=== PATIENT | female | born 1965 | race Caucasian/White ===

== ENCOUNTER → 2020-06-28 | Outpatient (CLI) | payer BC ==
[~2020-06-28] VITALS: Ht 157.5 cm; Wt 106.7 kg
[~2020-06-28] MED LIST: METO-352 PO; OMEP-401 PO; SPIR100T4 PO
== END | disposition home or self-care (01) ==
LOC: PREOP 05:39
PROVIDERS: ATTEND Surgery
DX: Z01.818 Encounter for other preprocedural examination (principal)

== ENCOUNTER 2020-07-05 10:57 | Day surgery (SDC) | payer BC ==
[2020-07-05] VITALS (7 sets, daily range): BP systolic 102–149; BP diastolic 57–94
[~2020-07-05] VITALS: Ht 157.5 cm; Wt 106.7 kg
[2020-07-05] MEDS ORDERED: LACTATED RINGERS 1,000 ML IV STA (11:25)
[2020-07-05] MEDS ORDERED: PROPOFOL INJECTION 50 ML IV ONE (12:05)
[2020-07-05] MEDS ORDERED: MIDAZOLAM 2 MG/2 ML (VERSED) VIAL ONE (12:18)
--- NOTE | 2020-07-05 12:29 | Progress Note-Pre Operative ---
Pre-Operative Progress Note H&P Reviewed The H&P was reviewed, patient examined and no changes noted. Time Seen by Provider: 12:06 Date H&P Reviewed: July 05, 2020 Time H&P Reviewed: 12:06 Pre-Operative Diagnosis: screening colon JOHNSON GOODSON DO July 05, 2020 12:29
--- NOTE | 2020-07-05 12:52 | Progress Note-Post Operative ---
Post-Operative Progess Note Surgeon (s)/Cardiopulmonary Specialist (s) Surgeon JOHNSON GOODSON DO Cardiopulmonary Specialist: none Pre-Operative Diagnosis screening colon Post-Operative Diagnosis Diverticula int hemorrhoids Procedure & Operative Findings Date of Procedure 07/05/20 Procedure Performed/Findings After informed consent was obtained, the patient was brought to the endoscopy suite and placed in the bed in the left lateral decubitus position. She was administered IV sedation by the [facility], who then monitored her vitals the entire time, heart rate, blood pressure and pulse ox and the scope was inserted, started the colonoscopy. Pushed all the way into about 150 cm to get all the way to cecum, took a picture of the appendiceal orifice, noted the ileocecal valve and then slowly withdrew the scope, insufflating to look circumferentially at the sylvester starting in the cecum, up the ascending colon to the hepatic flexure, then down the transverse colon to the splenic flexure, into the descending colon. In the descending colon and in the sigmoid, saw some diverticula and took pictures of them. Down the sigmoid and finally into the rectum, retroflexed in the rectal vault, saw some minimal internal hemorrhoids and took a picture of this. The patient tolerated the procedure and she recovered in the endoscopy suite. Anesthesia Type IV sedation by [facility] Estimated Blood Loss Estimated blood loss (mL): none Specimens/Packing Specimens Removed none JOHNSON GOODSON DO July 05, 2020 12:52
--- NOTE | 2020-07-05 12:53 | Endoscopy Discharge Instruct ---
Endo Procedure/Findings Findings 1.: Diverticulosis 2.: Internal Hemorrhoids Discharge Instructions - Activity: You might feel a little sleepy until tomorrow. This is due to the medicine you received to relax you. Until tomorrow, you should: NOT drive a car, operate machinery or power tools. NOT drink any alcoholic beverages. NOT make any important decisions or sign importortant papers. Do not return to work until tomorrow, unless otherwise instructed. Resume previous activities tomorrow. Diet: Start by taking liquids. If you tolerate liquids, advance to solid food. 1.: Colonscopy in 10 years Notify Physician - If you experience excessive bleeding, unusual abdominal pain, fever, or chest pain, contact your doctor immediately. JOHNSON GOODSON DO July 05, 2020 12:53
--- NOTE | 2020-07-05 13:11 | Anesthesia-General Post-Op ---
MAC Patient Condition Mental Status/LOC: Same as Preop Cardiovascular: Satisfactory Nausea/Vomiting: Absent Respiratory: Satisfactory Pain: Controlled Complications: Absent Post Op Complications Complications None Follow Up Care/Instructions Patient Instructions None needed. Anesthesiology Discharge Order Discharge Order Patient is doing well, no complaints, stable vital signs, no apparent adverse anesthesia problems. No complications reported per nursing. RADHA ROBERTS CRNA July 05, 2020 13:11
== END 2020-07-05 13:22 | disposition home or self-care (01) ==
LOC: ENDO 10:57
PROVIDERS: ATTEND Surgery
DX: K57.30 Diverticulosis of large intestine without perforation or abscess without bleeding (principal); K92.1 Melena; K64.8 Other hemorrhoids; I10 Essential (primary) hypertension; K21.9 Gastro-esophageal reflux disease without esophagitis; E66.01 Morbid (severe) obesity due to excess calories; Z68.41 Body mass index [BMI] 40.0-44.9, adult; Z98.890 Other specified postprocedural states; Z79.899 Other long term (current) drug therapy; Z79.2 Long term (current) use of antibiotics; Z80.9 Family history of malignant neoplasm, unspecified